=== PATIENT | male | born 1940 | race Caucasian/White ===

== ENCOUNTER → 2016-11-14 | Outpatient (CLI) | payer MEDICARE ==
[2016-11-14 11:56] LABS: Blood Urea Nitrogen 16 mg/dL (9-20); Non-African American GFR(MDRD) >60 (>60 ml/min/1.73 sqM)
--- NOTE | 2016-11-14 14:04 | CT ---
EXAMINATION TYPE: CT abdomen pelvis w con DATE OF EXAM: 11/14/2016 COMPARISON: NONE HISTORY: prostate CA CT DLP: 1778 mGycm Automated exposure control for dose reduction was used. TECHNIQUE: Helical acquisition of images from the lung bases through the pelvis have been completed. CONTRAST: Performed with Oral Contrast and with IV Contrast, patient injected with 100 mL of Omnipaque 300. FINDINGS: there are coronary artery calcifications. LUNG BASES: Some minimal increased attenuation may reflect dependent atelectatic change. AORTA: No significant abnormality is appreciated. Adjacent to the proximal superior mesenteric arter y on the right there is a oval calcification measuring 14 mm which may represent a small aneurysm. LIVER/GB: No significant abnormality is appreciated. PANCREAS: No significant abnormality is seen. SPLEEN: No significant abnormality is seen. ADRENALS: No significant abnormality is seen. KIDNEYS: Right kidney somewhat lobular in contour. No evident hydronephrosis or pathologic calcificat ion. REPRODUCTIVE ORGANS: Prostate is enlarged. There is an inferior impression on the urinary bladder. BOWEL: Postop change noted to the sigmoid colon. No evident bowel obstruction. FREE AIR: No Free Air visible. ASCITES: None visible. PELVIC ADENOPATHY: None visualized. RETROPERITONEAL ADENOPATHY: No Retroperitoneal Adenopathy visible. URINARY BLADDER: Urinary bladder shows a thickened wall possibly due to chronic outlet obstruction. Correlate to exclude cystitis. OSSEOUS STRUCTURES: Degenerative disc changes are present in the visualized spine. Postop change sta tus post posterior lumbar fusion at the lumbosacral junction. Multilevel facet arthropathy change pre sent, there is foraminal encroachment. IMPRESSION: POSTOP CHANGES. PROSTATIC ENLARGEMENT DESCRIBED. ADDITIONAL FINDINGS ABOVE, POSSIBLE ANEURYSM. NO EVIDENT METASTATIC DISEASE.
--- NOTE | 2016-11-14 16:27 | NM ---
EXAMINATION TYPE: NM bone scan whole body DATE OF EXAM: 11/14/2016 COMPARISON: NONE HISTORY: 76-year-old male history of prostate cancer Technique: Delayed whole-body scanning was performed following the injection of 25.3 mCi Tc 99m MDP. Anterior and posterior whole body images were acquired 3 hours post injection. FINDINGS: There is some degenerative uptake at both shoulders, posterior elements of the mid cervical spine on the left, along the mid to lower lumbar spine, and both lung bases, within the right ankle/hindfoot, and within the left midfoot. Photopenic defects related to bilateral total knee arthroplasties. No chen spicious accumulation of radiotracer to suggest osseous metastatic disease. IMPRESSION: The overall pattern suggests scattered degenerative tracer uptake as mentioned above. There is a david tary focal area of uptake in the left posterior elements of the mid cervical spine. Correlate with PS A values as to the likelihood of osseous metastases. Again, degenerative uptake is favored.
== END | disposition home or self-care (01) ==
LOC: RADNMMAIN 10:59
PROVIDERS: ATTEND Urology
DX: N40.0 Benign prostatic hyperplasia without lower urinary tract symptoms (principal); C61 Malignant neoplasm of prostate; M53.82 Other specified dorsopathies, cervical region; Z88.1 Allergy status to other antibiotic agents
CPT/HCPCS: 82565; 84520; 74177; 78306; A9503; Q9967

== ENCOUNTER → 2018-08-12 | Outpatient (CLI) | payer MEDICARE | END | disposition home or self-care (01) | LOC: LABWHC1 10:43 | PROVIDERS: ATTEND Student in an Organized Health Care Education/Training Program | DX: C61 Malignant neoplasm of prostate (principal) | CPT/HCPCS: 36415; 84153 ==

== ENCOUNTER 2021-10-11 09:27 | Emergency (ER) | payer MEDICARE ==
[2021-10-11 10:02] VITALS: BP 108/58; PULSE 63; RESP 16; TEMP 98.2
[2021-10-11] MEDS ORDERED: SULFAMETHOX-TMP 800-160MG 1 EACH TAB PO STA (10:15)
--- NOTE | 2021-10-11 10:18 | ED ---
General Adult HPI - General Chief complaint: Skin/Abscess/Foreign Body Stated complaint: L leg Pain Time Seen by Provider: 10/11/21 10:04 Source: patient, RN notes reviewed, old records reviewed Mode of arrival: ambulatory Limitations: no limitations - History of Present Illness Initial comments: Patient is a 81-year-old male who presents emergency Department with concern for an infected bug bite. Patient is uncertain what bit him. It occurred a few days ago. It has been itchy over his left anterior cheatham. Recently did have a spot removed for skin cancer. That has been healing adequately. At the site of the bug bite, there was a pustule which ruptured. Is currently open. Occasionally drains. Patient's was concerned for worsening infection as the patient has noticed some erythema around the site. Denies fevers, chills, systemic signs of infection. No diabetes history. No paresthesias or numbness of the left lower extremity. No abdominal pain, nausea, vomiting. No acute point at this time. They present over concern for infected bug bite. - Related Data Home Medications Medication Instructions Recorded Confirmed Ezetimibe/Simvastatin [Vytorin 1 tab PO HS 12/11/13 12/15/15 10-40 mg Tablet] Citalopram Hydrobromide [CeleXA] 10 mg PO DAILY 11/03/14 12/15/15 Clorazepate Dipotassium [Tranxene 7.5 mg PO DAILY PRN 11/03/14 12/15/15 T] Coumadin(Dose Unknown) 3 tab PO DAILY 12/15/15 12/15/15 HYDROcodone/APAP 7.5-325MG [Votaw 1 - 2 tab PO Q6HR PRN 12/15/15 12/15/15 7.5-325] Multivitamins, Thera [Multivitamin 1 tab PO DAILY@1200 12/15/15 12/15/15 (formulary)] Previous Rx's Medication Instructions Recorded Docusate [Colace] 100 mg PO BID #60 capsule 12/16/15 HYDROcodone/APAP 7.5-325MG [Votaw 1 - 2 each PO Q6HR PRN #90 tab 12/16/15 7.5-325] Warfarin [Coumadin] 2.5 mg PO DAILY #30 tab 12/16/15 lisinopriL [Zestril] 10 mg PO DAILY #30 tab 12/16/15 Sulfamethox-Tmp 800-160Mg [Bactrim 1 tab PO Q12HR 7 Days #14 tab 10/11/21 DS 800-160 mg] Allergies Allergy/AdvReac Type Severity Reaction Status Date / Time metronidazole [From Flagyl] Allergy Severe Anaphylaxis Verified 10/11/21 10:02 piperacillin sodium Allergy Severe Anaphylaxis Verified 10/11/21 10:02 [From Zosyn] tazobactam sodium Allergy Severe Anaphylaxis Verified 10/11/21 10:02 [From Zosyn] Hpfqosr-ABL-ZoI Reductase AdvReac LEG PAIN Verified 10/11/21 10:02 Inhibitor [Aitaoyj-Unk-Hiq Reductase Inhibitor] Review of Systems ROS Statement: Those systems with pertinent positive or pertinent negative responses have been documented in the HPI. Review of Systems: CONST: Denies fever EYES: Denies blurry vision ENT: Denies nasal congestion C/V: Denies Chest pain RESP: Denies shortness of breath GI: Denies abdominal pain : Denies dysuria SKIN: Endorse's left lower extremity bug bite. MSK: Denies joint pain. NEURO: Denies headache ROS Other: All systems not noted in ROS Statement are negative. Past Medical History Past Medical History: Hyperlipidemia, Hypertension, Osteoarthritis (OA) Additional Past Medical History / Comment(s): PRE CA SKIN LESIONS History of Any Multi-Drug Resistant Organisms: MRSA Date of last positivie culture/infection: 2007 MDRO Source:: RT SHOULDER Past Surgical History: Back Surgery, Joint Replacement, Orthopedic Surgery Additional Past Surgical History / Comment(s): RT KNEE REPLACEMENT 09/22/15 4 NECK SX, 2 BACK SX, BLACK ROT CUFF, LEFT FOOT SX X2, SCREWS IN LEFT FOOT, AND BACK. PRE CA LESIONS, I&D RIGHT SHOULDER, PICC LINE, LEFT PAROTID BENIGN LESION REMOVED,cataracts.12-15-15 total lt knee Past Anesthesia/Blood Transfusion Reactions: Postoperative Nausea & Vomiting (PONV) Additional Past Anesthesia/Blood Transfusion Reaction / Comment(s): STATES HAD INCIDENT WITH ANESTHESIA CAUSING A-FLUTTER, NO CURRENT ISSUES Past Psychological History: Anxiety, Depression Smoking Status: Never smoker Past Alcohol Use History: Occasional Past Drug Use History: None Reported - Past Family History Father Family Medical History: Cancer, Deep Vein Thrombosis (DVT) Additional Family Medical History / Comment(s): prostate cancer, following sx for blood clot Mother Family Medical History: Cancer Additional Family Medical History / Comment(s): LYMPH NODES General Exam - General Exam Comments Initial Comments: General: Appears in no acute distress. HEAD: Normal with no signs of head trauma. EYES: EOMI ENT: Hearing grossly intact, normal oropharynx. RESPIRATORY: No increased work of breathing. C/V: Regular rate and rhythm. S1 and S2 auscultated, no edema, peripheral pulses 2+ and intact throughout ABD: Abdomen is nondistended. EXT: Normal range of motion. No obvious deformity. SKIN: Appears to be a bug bite located over the anterior left cheatham. Patient also has a lesion that was excised for skin cancer. Skin cancer lesion appears within normal limits. It is open and draining. The blood bite appears somewhat scabbed over. No active drainage. No fluctuance. Mild amount of erythema approximately the size of a half dollar coin around the site of the bug bite. This is new per patient and . No warmth. No calf tenderness. No bony tenderness. No tenderness to palpation. No induration. NEURO: Alert and oriented 4. Limitations: no limitations Course Vital Signs 10/11/21 10:00 Temperature 98.2 F Pulse Rate 63 Respiratory 16 Rate Blood Pressure 108/58 O2 Sat by Pulse 95 Oximetry Medical Decision Making - Medical Decision Making Based on patient's presentation and physical exam, I do believe he likely has a mild cellulitis of the left anterior cheatham. Vital signs are within normal limits. His no systemic signs of infection. Blood rate is already open and actively draining. I discussed this with the patient as well as his . I believe it is safe to discharge home on antibiotics without laboratory studies or imaging at this time. They were in agreement this plan. Recommended close follow-up with his PCP within the next few days. Strict return precautions were provided. Patient was given a dose of Bactrim prior to discharge. I will provide the patient with a prescription for Bactrim. I instructed the patient to follow up with their PCP in the next 1-3 days. I explained that the patient should return to the emergency department if they experience any worsening symptoms. Strict return precautions were discussed with the patient. The patient expressed understanding of these instructions. I answered all questions that the patient had. The patient was discharged home in good condition with their prescriptions and follow up information. Disposition Clinical Impression: Cellulitis, Bug bite Disposition: HOME SELF-CARE Condition: Good Instructions (If sedation given, give patient instructions): Cellulitis (ED) Prescriptions: Sulfamethox-Tmp 800-160Mg [Bactrim DS 800-160 mg] 1 tab PO Q12HR 7 Days #14 tab Is patient prescribed a controlled substance at d/c from ED?: No Referrals: Denny Cordova MD [Primary Care Provider] - 1-2 days Time of Disposition: 10:17
== END 2021-10-11 10:25 | disposition home or self-care (01) ==
LOC: EC 09:27
DX: S80.862A Insect bite (nonvenomous), left lower leg, initial encounter (principal); L03.116 Cellulitis of left lower limb; E78.5 Hyperlipidemia, unspecified; I10 Essential (primary) hypertension; Z88.0 Allergy status to penicillin; Z88.5 Allergy status to narcotic agent; Z88.8 Allergy status to other drugs, medicaments and biological substances; W57.XXXA Bitten or stung by nonvenomous insect and other nonvenomous arthropods, initial encounter

== ENCOUNTER → 2021-10-20 | Outpatient (CLI) | payer MEDICARE ==
[2021-10-20 11:11] LABS: African American GFR (CKD) >90 (>60 ml/min/1.73 sqM); Blood Urea Nitrogen 12 mg/dL (9-20); Non-African American GFR(CKD) 88 (>60 ml/min/1.73 sqM)
--- NOTE | 2021-10-20 12:02 | CT ---
EXAMINATION TYPE: CT soft tissue neck w con CT DLP: 706 mGycm, Automated exposure control for dose reduction was used. DATE OF EXAM: 10/20/2021 11:39 AM COMPARISON: None. CLINICAL INDICATION:Male, 81 years old with history of K11.1 Left parotid swelling; Left Parotid Swel ling. TECHNIQUE: Standard enhanced CT of the neck following intravenous administration of 70 cc of Isovue 3 00. Axial sections with coronal and sagittal reformats were obtained. FINDINGS: Brain: Visualized portions are grossly unremarkable. Orbits: Unremarkable Sinuses: Grossly unremarkable. Spaces of the neck: The parotid glands appear grossly symmetric. There is no significant inflammation changes seen along the left parotid subcutaneous tissues. There is an intraparotid lymph node noted on the left. No organizing fluid collections. Musculoskeletal: No acute osseous pathology. Degenerative disc disease changes of the visualized spin e are present. Lymph nodes: Multiple nonenlarged lymph nodes are seen along both anterior chains of the neck. Vascular structures: Patent with atherosclerotic plaque of the internal carotid arteries at the bifur cation. Thoracic Inlet/airway: Airway is patent. The lung apices are clear. Soft tissues/Thyroid: Thyroid and remainder of the soft tissues are unremarkable. Other: none. IMPRESSION 1. No definitive evidence for significant abnormality involving the left parotid gland. Parotid glan d appears symmetric with intraparotid lymph node noted. No organizing fluid collections 2. Mild atherosclerotic plaque at the carotid bifurcations.
== END | disposition home or self-care (01) ==
LOC: RADCTMAIN 10:20
PROVIDERS: ATTEND Otolaryngology
DX: I65.23 Occlusion and stenosis of bilateral carotid arteries (principal)
CPT/HCPCS: 82565; 84520; 70491; 36415; Q9967

== ENCOUNTER → 2022-08-15 | Outpatient (CLI) | payer MEDICARE ==
--- NOTE | 2022-08-15 21:39 | BD ---
EXAMINATION TYPE: Axial Bone Density DATE OF EXAM: 08/15/2022 CLINICAL HISTORY: 82 years old Male. 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 History of Fracture in Adulthood: yes Secondary Osteoporosis: 1. Type 1 Diabetes: no 2. Hyperthyroidism: no 4. Malnutrition: no 5. Chronic liver disease: no Rheumatoid Arthritis: no Current Tobacco Use: no RISK FACTORS HISTORY OF: Surgery to Spine/Hip(right/left)/Wrist (right/left): lumbar spine- age 39 Family History of Osteoporosis: no Diet low in dairy products/other sources of calcium: no Lost more than 2 inches in height since high school: yes MEDICATIONS: Additional History: prostate cancer with mets EXAM MEASUREMENTS: Bone mineral densitometry was performed using the Xby[employer] System. Bone mineral density about the R hip (g/cm2): 1.185 Bone mineral density about the L hip (g/cm2): 1.132 T Score values are as follows: -----R Neck: 1.0 -----L Neck: 0.6 -----R Total: 1.4 -----L Total: 1.0 Z Score values are as follows: -----R Neck: 1.8 -----L Neck: 1.4 -----R Total: 1.3 -----L Total: 0.9 Bone mineral density : baseline Bone mineral density about the L Wrist (g/cm2): 0.798 T Score values are as follows: -----Dist. R+U: 1.8 -----Prox. R+U: -0.1 -----Radius total: 0.7 Z Score values are as follows: -----Dist. R+U: 3.0 -----Prox. R+U: 1.1 -----Radius total: 1.9 Bone mineral density : baseline FRAX%s: The graph provided illustrates a 6.5% chance for a major osteoporotic fx and a 1.1% chance fo r the hips probability for fx in 10 years time. IMPRESSION: Normal (Values between +1 and -1 indicate normal bone mass). Consider repeating this study in 5 year s or sooner if there is some new clinical indication. NOTE: T-SCORE=SD OF THE YOUNG ADULT MEAN.
== END | disposition home or self-care (01) ==
LOC: RADBDWWP 16:15
PROVIDERS: ATTEND Internal Medicine Hematology & Oncology
DX: M81.0 Age-related osteoporosis without current pathological fracture (principal); C61 Malignant neoplasm of prostate; F32.A Depression, unspecified; E78.5 Hyperlipidemia, unspecified; Z71.3 Dietary counseling and surveillance
CPT/HCPCS: 77080